=== PATIENT | female | born 1975 | race Hispanic/Latino ===

== ENCOUNTER 2021-11-07 08:05 | Emergency (ER) | payer BC ==
[2021-11-07] MEDS ORDERED: dexAMETHasone 20 MG/5 ML VIAL IM ONE (10:51)
--- NOTE | 2021-11-07 10:56 | Emergency Department Report ---
ED ENT HPI - General Chief complaint: Dental/Oral Stated complaint: SWOLLEN FACE/ABSCESS Time Seen by Provider: 11/07/21 10:54 Source: patient Mode of arrival: Ambulatory Limitations: No Limitations - History of Present Illness Initial comments: 46-year-old female presents to the ED with right-sided jaw pain. Patient was evaluated yesterday at [facility] and given clindamycin 300 mg take 3 times a day to return to the ED for worsening pain. Patient states that she awakened this morning with worsening pain and mild swelling. She states that she did not take clindamycin this a.m.. Patient states she has appointment with oral surgery on December 04. Patient denies taking any pain medication this morning due to the fact that she was coming to the ED. patient states that pain is normally relieved with Tylenol arthritis. No acute distress noted .no ill appearance noted. MD complaint: tooth pain Onset/Timin -: days(s) Severity scale (0 -10): 2 Quality: aching Consistency: intermittent Improves with: other (Tylenol) Worsens with: none Context-Epistaxis: other Context- Dental: poor dental care Associated Symptoms: denies: fever, cough, gum swelling, pain with swallowing, sore throat, tinnitus, hearing loss - Related Data Allergies Allergy/AdvReac Type Severity Reaction Status Date / Time No Known Allergies Allergy Unverified 11/07/21 08:10 ED Dental HPI - General Chief complaint: Dental/Oral Stated complaint: SWOLLEN FACE/ABSCESS Source: patient Mode of arrival: Ambulatory Limitations: No Limitations - Related Data Allergies Allergy/AdvReac Type Severity Reaction Status Date / Time No Known Allergies Allergy Unverified 11/07/21 08:10 ED Review of Systems ROS: Stated complaint: SWOLLEN FACE/ABSCESS Other details as noted in HPI Constitutional: denies: chills, fever Eyes: denies: eye pain, eye discharge, vision change ENT: dental pain. denies: ear pain, throat pain, hearing loss, congestion Respiratory: no symptoms reported Cardiovascular: denies: chest pain, palpitations Endocrine: no symptoms reported Gastrointestinal: denies: abdominal pain, nausea, diarrhea Genitourinary: denies: urgency, dysuria, discharge Musculoskeletal: denies: back pain, joint swelling, arthralgia Skin: denies: rash, lesions Neurological: denies: headache, weakness, paresthesias Psychiatric: denies: anxiety, depression Hematological/Lymphatic: denies: easy bleeding, easy bruising ED Physical Exam - General Limitations: No Limitations General appearance: alert, in no apparent distress - Head Head exam: Present: atraumatic, normocephalic - Eye Eye exam: Present: normal appearance - ENT ENT exam: Present: normal orophraynx, mucous membranes moist - Expanded ENT Exam Expanded Mouth exam: Present: tongue normal. Absent: drooling, trismus, tongue elevation Throat exam: Positive: normal inspection. Negative: tonsillar erythema, tonsillomegaly, tonsillar exudate, R peritonsillar mass, L peritonsillar mass - Neck Neck exam: Present: normal inspection - Respiratory Respiratory exam: Present: normal lung sounds bilaterally. Absent: respiratory distress - Cardiovascular Cardiovascular Exam: Present: regular rate, normal rhythm. Absent: systolic murmur, diastolic murmur, rubs, gallop - GI/Abdominal GI/Abdominal exam: Present: soft, normal bowel sounds - Extremities Exam Extremities exam: Present: normal inspection - Back Exam Back exam: Present: normal inspection - Neurological Exam Neurological exam: Present: alert, oriented X3 - Psychiatric Psychiatric exam: Present: normal affect, normal mood - Skin Skin exam: Present: warm, dry, intact, normal color. Absent: rash ED Medical Decision Making - Medical Decision Making 46-year-old female presents to the ED with right-sided jaw pain. Patient was evaluated yesterday at [facility] and given clindamycin 300 mg take 3 times a day to return to the ED for worsening pain. Patient states that she awakened this morning with worsening pain and mild swelling. She states that she did not take clindamycin this a.m.. Patient states she has appointment with oral surgery on December 04. Patient denies taking any pain medication this morning due to the fact that she was coming to the ED. patient states that pain is normally relieved with Tylenol arthritis. No acute distress noted .no ill appearance noted. Examination unremarkable. No trismus noted. Uvula midline.. Decadron 10 mg given IM . Patient to continue taking clindamycin has previous prescribed. Patient to keep appointment with oral surgeon has previously scheduled. Discuss plan wit patient verbalized understanding. Critical care attestation.: If time is entered above; I have spent that time in minutes in the direct care of this critically ill patient, excluding procedure time. ED Disposition Clinical Impression: Dental abscess Disposition: HOME / SELF CARE / HOMELESS Is pt being admited?: No Does the pt Need Aspirin: No Condition: Stable Instructions: Dental Abscess Additional Instructions: keep appointment with oral surgery as previous schedule continue to take clindamycin as previously prescribed Take medication as prescribed Return to ED for any worsening symptoms Referrals: PRIMARY CARE, [Primary Care Provider] - 3-5 Days
[2021-11-07 11:34] VITALS: BP 160/90
== END 2021-11-07 11:34 | disposition home or self-care (01) ==
LOC: ED 08:05
DX: K04.7 Periapical abscess without sinus (principal)
CPT/HCPCS: 96372; 99282; J1100